=== PATIENT | female | born 1945 | race Caucasian/White ===

== ENCOUNTER 2017-07-18 15:49 | Emergency (ER) | payer MEDICARE ==
[~2017-07-18] VITALS: Ht 162.6 cm; Wt 96.0 kg
[2017-07-18 15:55] VITALS: BP 131/59; PULSE 71; RESP 16; TEMP 98.4; O2SAT 95
[2017-07-18 16:26] LABS: BILIRUBIN, URINE NEG (NEG); BLOOD, URINE LARGE (NEG); GLUCOSE,URINE 100 mg/dL (NEG); KETONE, URINE NEG (NEG); NITRITE,URINE POS (NEG); PH, URINE 5.5 (5.0-8.5); URINE LEUKOCYTE ESTERASE LARGE (NEG)
[2017-07-18 16:36] LABS: URINE COLOR ORANGE (YELLW/STRAW)
[2017-07-18 16:39] LABS: BACTERIA, URINE FEW /hpf; RBC, URINE 15-19 /hpf (0-3); SQUAMOUS EPITHELIAL CELL URINE 0-5 /hpf (0-5); WHITE BLOOD CELL CLUMPS FEW
[2017-07-18] MEDS ORDERED: MACR100C2 PO (17:14)
[2017-07-18] MEDS ORDERED: DIFL150T PO (17:14)
--- NOTE | 2017-07-18 17:14 | PD ---
HPI Chief Complaint: Complaint Time Seen by Provider: 17:11 Travel History International Travel<30 days: No Contact w/Intl Traveler<30days: No Traveled to known affect area: No History of Present Illness HPI Patient presents with 2-3 day history of dysuria, urgency, frequency but according to patient feels like her previous UTI that she had several years ago. Patient denies any alleviating or aggravating factors. Patient denies any associated factors such as fever, rash, headache, neck stiffness, chest pain , abdominal pain, back pain, nausea, vomiting or diarrhea Patient denies any known drug allergies Past medical history significant for hypothyroid, GERD PFSH Social History Tobacco Use: No Allergies-Medications (Allergen,Severity, Reaction): Coded Allergies: No Known Allergies (Unverified , 07/18/17) Reported Meds & Prescriptions Reported Meds & Active Scripts Active Diflucan (Fluconazole) 150 Mg Tab 150 Mg PO ONCE Macrobid (Nitrofurantoin Monohydrate Macrocrystals) 100 Mg Capsule 100 Mg PO BID 7 Days Reported Multi-Vitamin Daily (Multiple Vitamin) 1 Tab Tab 1 Tab PO DAILY Omeprazole 40 Mg Cap 40 Mg DAILY Escitalopram (Escitalopram Oxalate) 20 Mg Tab 20 Mg PO DAILY Levothyroxine (Levothyroxine Sodium) 112 Mcg Tab 112 Mcg PO DAILY Review of Systems General / Constitutional: No: Fever Eyes: No: Visual changes HENT: No: Headaches Cardiovascular: No: Chest Pain or Discomfort Respiratory: No: Shortness of Breath Gastrointestinal: No: Abdominal Pain Genitourinary: Positive: Urgency, Frequency, Dysuria Musculoskeletal: No: Pain Skin: No Rash Neurologic: No: Weakness Psychiatric: No: Depression Endocrine: No: Polydipsia Hematologic/Lymphatic: No: Easy Bruising Physical Exam Narrative GENERAL: SKIN: Warm and dry. HEAD: Atraumatic. Normocephalic. EYES: Pupils equal and round. No scleral icterus. No injection or drainage. ENT: No nasal bleeding or discharge. Mucous membranes pink and moist. NECK: Trachea midline. No JVD. CARDIOVASCULAR: Regular rate and rhythm. RESPIRATORY: No accessory muscle use. Clear to auscultation. Breath sounds equal bilaterally. GASTROINTESTINAL: Abdomen soft, non-tender, nondistended. MUSCULOSKELETAL: Extremities without clubbing, cyanosis, or edema. No obvious deformities. NEUROLOGICAL: Awake and alert. No obvious cranial nerve deficits. Motor grossly within normal limits. Five out of 5 muscle strength in the arms and legs. Normal speech. PSYCHIATRIC: Appropriate mood and affect; insight and judgment normal. Data Data Last Documented VS Vital Signs Date Time Temp Pulse Resp B/P (MAP) Pulse Ox O2 Delivery O2 Flow Rate FiO2 07/18/17 15:55 98.4 71 16 131/59 (83) 95 Orders Orders Urinalysis - C+S If Indicated (07/18/17 15:51) Urine Culture (07/18/17 16:00) Ed Discharge Order (07/18/17 17:28) Labs Laboratory Tests Test 07/18/17 16:00 Urine Color ORANGE Urine Turbidity CLEAR Urine pH 5.5 Urine Specific [place] 1.010 Urine Protein 100 mg/dL Urine Glucose (UA) 100 mg/dL Urine Ketones NEG mg/dL Urine Occult Blood LARGE Urine Nitrite POS Urine Bilirubin NEG Urine Urobilinogen 4.0 MG/DL Urine Leukocyte Esterase LARGE Urine RBC 15-19 /hpf Urine WBC 20-24 /hpf Urine WBC Clumps FEW Urine Squamous Epithelial Cells 0-5 /hpf Urine Bacteria FEW /hpf Microscopic Urinalysis Comment CULTURE INDICATED MDM Medical Decision Making Medical Screen Exam Complete: Yes Emergency Medical Condition: Yes Medical Record Reviewed: Yes Differential Diagnosis Burning sensation may be secondary to vulvar dystrophy versus UTI versus vulvar candidiasis Narrative Course ua c/w uti Diagnosis Primary Impression: UTI Patient Instructions: General Instructions, Urinary Tract Infection in Women ( ED) Scripts Fluconazole (Diflucan) 150 Mg Tab 150 MG PO ONCE for Infection, #1 TAB 0 Refills Prov: Paul Mora MD 07/18/17 Nitrofurantoin Monohydrate Macrocrystals (Macrobid) 100 Mg Capsule 100 MG PO BID for Infection for 7 Days, #14 CAP 0 Refills Prov: Paul Mora MD 07/18/17 Disposition: 01 DISCHARGE HOME Condition: Stable Paul Mora MD Jul 18, 2017 17:14
[2017-07-18] MEDS ORDERED: OMEP40CA2 (17:43)
[2017-07-18] MEDS ORDERED: MULT-65 PO (17:43)
[2017-07-18] MEDS ORDERED: LEVO112T2 PO (17:43)
[2017-07-18] MEDS ORDERED: ESCI20TA PO (17:43)
== END 2017-07-18 18:00 | disposition home or self-care (01) ==
LOC: PHED 15:49
DX: N39.0 Urinary tract infection, site not specified (principal); B96.20 Unspecified Escherichia coli [E. coli] as the cause of diseases classified elsewhere
CPT/HCPCS: 81001; 87077; 87086; 87186; 99283